=== PATIENT | female | born 2000 | race Caucasian/White ===

== ENCOUNTER 2019-01-30 11:27 | Emergency (ER) | payer SELFPAY ==
[~2019-01-30] VITALS: Ht 157.5 cm; Wt 56.8 kg
[2019-01-30] MEDS ORDERED: AMOX1TAB16 PO (11:35)
[2019-01-30] MEDS ORDERED: BACTDSB PO (11:35)
[2019-01-30] MEDS ORDERED: ACET-2247 PO (11:35)
[2019-01-30] MEDS ORDERED: DIPH25 PO (11:35)
[2019-01-30 11:40] VITALS: BP 113/65
== END 2019-01-30 12:01 | disposition home or self-care (01) ==
LOC: EMS 11:27
DX: H00.014 Hordeolum externum left upper eyelid (principal); Z79.899 Other long term (current) drug therapy